=== PATIENT | female | born 1955 | race Caucasian/White ===

== ENCOUNTER 2018-06-18 13:32 | Observation (INO) ==
[2018-06-18] MEDS ORDERED: 0.9 % Sodium Chloride 1,000 ML IVC ONE (13:39)
--- NOTE | 2018-06-18 13:39 | Emergency Department Note ---
Disposition Clinical Impression: Weakness Disposition: Admitted As Inpatient Condition: Fair Referrals: Galindo Saucedo, [employer] [Primary Care Provider] - Forms: ED Satisfaction Letter, Work/School Release Time of Disposition: 15:50 (Dr Graff) Altered Mental Status HPI - General Chief Complaint: ED General Medical Stated Complaint: LOW BP/DEHYDRATION Time Seen by Provider: 06/18/18 13:50 Source: patient, EMS Mode of arrival: EMS Limitations: no limitations Nursing Notes Reviewed: Yes Vital Signs Reviewed: Yes - History of Present Illness HPI Narrative: For over one week the patient has had decreased by mouth intake secondary to decreased appetite and has been increasingly weak and tired. He has a history of glioblastoma and underwent recent brain surgery. She had chemotherapy approximately one month ago. MD complaint: weakness Timing confirmed by: family member Pain Severity: none Consistency of Symptoms: getting worse Associated symptoms: Reports: headaches, loss of appetite, weakness, difficulty walking. Denies: chest pain, cough, diaphoresis, fever, chills, malaise, nausea /vomiting, rash, seizure, shortness of breath, syncope, diarrhea, incontinence - Related Data Home Medications Medication Instructions Recorded Confirmed Omeprazole 40 mg PO DAILY 09/17/16 04/04/18 Simvastatin [Zocor] 40 mg PO HS 09/17/16 04/04/18 Acetaminophen [Tylenol] 650 mg PO Q4HR PRN 03/18/18 04/04/18 Docusate [Colace] 100 mg PO BID 03/18/18 04/04/18 Metoprolol [Lopressor] 12.5 mg PO BID 03/18/18 04/04/18 Ondansetron ODT [Zofran ODT] 8 mg PO BID 03/18/18 04/04/18 Bumetanide 0.5 mg PO QAM 04/04/18 04/04/18 FLUoxetine HCl [PROzac] 20 mg PO DAILY 04/04/18 04/04/18 Lisinopril [Zestril] 40 mg PO DAILY 04/04/18 04/04/18 OxyCODONE/APAP 5/325 [Percocet 1 - 2 each PO Q4HR 04/04/18 04/04/18 5/325 MG] Previous Rx's Medication Instructions Recorded ALPRAZolam [Xanax 0.5 MG Tablet] 0.5 mg PO Q6H PRN 5 Days #20 tablet 04/01/18 Bumetanide 0.5 mg PO DAILY #30 tablet 04/01/18 Cyanocobalamin (B-12) [Vitamin B12] 1,000 mcg PO DAILY #30 tablet 04/01/18 Dexamethasone [Decadron] 4 mg PO Q12HR #60 tablet 04/01/18 LevETIRAcetam [Keppra] 500 mg PO Q12HR #60 tablet 04/01/18 amLODIPine [Norvasc] 5 mg PO DAILY #30 tablet 04/01/18 Nitrofurantoin Monohyd/M-Cryst 100 mg PO DAILY #10 capsule 04/04/18 [Macrobid 100 mg Capsule] Allergies Allergy/AdvReac Type Severity Reaction Status Date / Time Amoxicillin AdvReac Itching Verified 05/27/18 10:48 All systems ED: reviewed and negative except as stated. 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 Absent: scleral icterus, conjunctival injection - ENT ENT exam: normal exam, normal oropharynx, mucous membranes moist - Neck Neck exam: Present: normal inspection, full ROM, trachea midline - Chest Chest inspection: Present: normal inspection, symmetric chest wall rise - Respiratory Respiratory exam: Present: normal lung sounds bilaterally - Cardiovascular Cardiovascular exam: Present: regular rate, normal rhythm, normal heart sounds - Abdominal Exam Abdominal exam: Present: soft, Non-Tender. Absent: tenderness, distention, guarding, rebound, rigidity - Extremities Exam Extremities exam: Present: normal inspection. Absent: tenderness, pedal edema - Psychiatric Psychiatric exam: Present: normal affect, normal mood - Skin Skin exam: Present: warm, dry, intact, normal color Course Vital Signs Temperature 98.8 F 07/21/18 13:33 Pulse Rate 91 06/18/18 13:33 Respiratory Rate 18 06/18/18 13:33 Blood Pressure 90/54 06/18/18 13:33 O2 Sat by Pulse Oximetry 95 06/18/18 13:33 Temperature 98.8 F 06/18/18 13:33 Pulse Rate 91 06/18/18 13:33 Respiratory Rate 18 06/18/18 13:33 Blood Pressure 90/54 06/18/18 13:33 O2 Sat by Pulse Oximetry 95 06/18/18 13:33 Oxygen Delivery Oxygen Delivery Room Air Altered Mental Status - Differential Diagnosis Likely: altered mental status, delirium, dementia, hypoglycemia, hyponatremia - Medical Records Medical records reviewed: Yes I reviewed the patient's medical records. - Lab Data Lab results reviewed: Yes I reviewed the patient's lab results. Result diagrams: 06/18/18 14:06 06/18/18 14:06 Lab Results 06/18/18 06/18/18 06/18/18 Range/Units 14:06 14:06 14:06 WBC 4.9 (4.3-11.1) K/mcL RBC 4.29 (3.82-4.97) M/mcL Hgb 12.7 (11.5-15.4) g/dL Hct 38.8 (35.3-44.9) % MCV 90.4 (83.0-100.0) fL MCH 29.6 (28.0-33.3) pg MCHC 32.7 (31.6-35.5) g/dL RDW 15.5 H (11.5-14.5) % Plt Count 229 (140-400) K/mcL MPV 9.1 L (9.4-12.4) fL Immature Gran % 1.0 (0-4) % Seg Neutrophils % 63.9 % Lymphocytes % 18.3 % Monocytes % 14.0 % Eosinophils % 2.2 % Basophils % 0.6 % Neutrophils # 3.1 (1.6-8.9) K/mcL Lymphocytes # 0.9 (0.6-4.6) K/mcL Monocytes # 0.7 (0.0-1.3) K/mcL Eosinophils # 0.1 (0.0-0.6) K/mcL Basophils # 0.0 (0.0-0.2) K/mcL Sodium 140 (136-145) mEq/L Potassium 4.4 (3.5-5.1) mEq/L Chloride 105 (98-107) mEq/L Carbon Dioxide 25 (23-29) mEq/L BUN 28 H (8-23) mg/dL Creatinine 1.93 H (0.60-1.20) mg/dL Est GFR ( Amer) 32 L (> 60) Est GFR (Non-Af Amer) 26 L (> 60) BUN/Creatinine Ratio 15 (6-26) Glucose 114 H (70-105) mg/dL Calculated Osmolality 296 (280-300) Lactic Acid 0.9 (0.5-2.2) mmol/L Calcium 9.9 (8.6-10.3) mg/dL Magnesium 1.7 (1.6-2.6) mg/dL Total Bilirubin 0.6 (0.3-1.0) mg/dL AST 10 L (13-39) Units/L ALT 5 L (7-52) Units/L Alkaline Phosphatase 47 (34-104) Units/L Troponin I < 0.03 (< 0.04) ng/mL Serum Total Protein 6.4 (6.4-8.9) g/dL Albumin 3.9 (3.5-5.7) g/dL Globulin 2.5 (2.4-3.5) g/dL Albumin/Globulin Ratio 1.6 (1.1-2.2) TSH 0.504 (0.340-5.600) mcIU/mL - Radiology Data Chest X-Ray 06/18/18 13:39 IMPRESSION: No acute process. D/ / Germain Bowman MD / Germain Bowman MD Interpreting Provider: Germain Bowman MD - EKG Data EKG attestation: Yes I reviewed and interpreted this EKG. Rate: normal Rhythm: NSR [place]/QRS: normal Interpretation: unchanged when compared to prior tracing (date), nonspecific ST- T wave changes TPA Checklist - LKW: 3-4.5 hrs Add. Warnings/Precautions Patient/family understanding: The patient/family members have been counseled and understood the risk, benefit , and alternatives of treatment.
[2018-06-18 14:13] LABS: Basophils % 0.6 %; Eosinophils # 0.1 K/mcL (0.0-0.6); Eosinophils % 2.2 %; Hematocrit 38.8 % (35.3-44.9); Hemoglobin 12.7 g/dL (11.5-15.4); Lymphocytes # 0.9 K/mcL (0.6-4.6); Lymphocytes % 18.3 %; Mean Corpuscular HGB Conc 32.7 g/dL (31.6-35.5); Mean Corpuscular Hemoglobin 29.6 pg (28.0-33.3); Mean Corpuscular Volume 90.4 fL (83.0-100.0); Mean Platelet Volume 9.1 fL (9.4-12.4); Monocytes # 0.7 K/mcL (0.0-1.3); Neutrophils # 3.1 K/mcL (1.6-8.9); Platelet Count 229 K/mcL (140-400); Red Blood Count 4.29 M/mcL (3.82-4.97); Red Cell Distribution Width 15.5 % (11.5-14.5); Segmented Neutrophils % 63.9 %
[2018-06-18 14:31] LABS: Alanine Aminotransferase 5 Units/L (7-52); Albumin 3.9 g/dL (3.5-5.7); Albumin/Globulin Ratio 1.6 (1.1-2.2); Alkaline Phosphatase 47 Units/L (34-104); Aspartate Amino Transferase 10 Units/L (13-39); BUN/Creatinine Ratio 15 (6-26); Bilirubin,Total 0.6 mg/dL (0.3-1.0); Blood Urea Nitrogen 28 mg/dL (8-23); Calcium 9.9 mg/dL (8.6-10.3); Carbon Dioxide 25 mEq/L (23-29); Chloride 105 mEq/L (98-107); Globulin 2.5 g/dL (2.4-3.5); Glucose 114 mg/dL (70-105); Magnesium 1.7 mg/dL (1.6-2.6); Osmolality,Calculated 296 (280-300); Potassium 4.4 mEq/L (3.5-5.1); Sodium 140 mEq/L (136-145); Total Protein 6.4 g/dL (6.4-8.9); eGFR For African Americans 32 (> 60); eGFR For Non-African Americans 26 (> 60)
[2018-06-18 14:40] LABS: Troponin I < 0.03 ng/mL (< 0.04)
[2018-06-18 14:54] LABS: Thyroid Stimulating Hormone 0.504 mcIU/mL (0.340-5.600)
[2018-06-18] MEDS ORDERED: Naloxone 0.4 MG/ML INJ IVP PRN (17:35)
[2018-06-18] MEDS ORDERED: Acetaminophen 325 MG TABLET PO PRN (17:35)
[2018-06-18] MEDS ORDERED: 0.9 % Sodium Chloride 1,000 ML IVC SCH (17:35)
[2018-06-18] MEDS: levETIRAcetam 250 MG TABLET PO SCH (18:51)
[2018-06-18] MEDS: *HR* OxyCODONE/APAP 5/325 TABLET PO SCH (18:52)
[2018-06-18] MEDS: Ondansetron ODT 4 MG TAB.RAPDIS PO SCH (20:13)
[2018-06-19] MEDS: *HR* OxyCODONE/APAP 5/325 TABLET PO SCH ×8 (04:07→20:49)
[2018-06-19 06:09] LABS: Basophils % 0.8 %; Eosinophils % 0.6 %; Hematocrit 33.2 % (35.3-44.9); Hemoglobin 10.8 g/dL (11.5-15.4); Immature Granulocytes % 0.6 % (0-4); Lymphocytes # 0.8 K/mcL (0.6-4.6); Lymphocytes % 23.8 %; Mean Corpuscular HGB Conc 32.5 g/dL (31.6-35.5); Mean Corpuscular Hemoglobin 29.6 pg (28.0-33.3); Mean Platelet Volume 9.7 fL (9.4-12.4); Monocytes # 0.4 K/mcL (0.0-1.3); Monocytes % 11.9 %; Neutrophils # 2.2 K/mcL (1.6-8.9); Platelet Count 197 K/mcL (140-400); Red Blood Count 3.65 M/mcL (3.82-4.97); Red Cell Distribution Width 15.3 % (11.5-14.5); Segmented Neutrophils % 62.3 %
[2018-06-19] MEDS: levETIRAcetam 250 MG TABLET PO SCH ×2 (06:36→17:33)
[2018-06-19 07:06] LABS: Calcium 8.9 mg/dL (8.6-10.3); Potassium 4.5 mEq/L (3.5-5.1)
[2018-06-19] MEDS ORDERED: BUMETANIDE 0.5 MG PO SCH (09:00)
[2018-06-19] MEDS: Cyanocobalamin (B-12) 1,000 MCG TABLET PO SCH (10:34)
[2018-06-19] MEDS: ALPRAZolam 0.5 MG TABLET PO PRN ×2 (10:34→20:49)
[2018-06-19] MEDS: amLODIPine 5 MG TABLET PO SCH (10:34)
[2018-06-19] MEDS: FLUoxetine 20 MG CAPSULE PO SCH (10:34)
[2018-06-19] MEDS: Ondansetron ODT 4 MG TAB.RAPDIS PO SCH ×2 (10:34→20:49)
[2018-06-19] MEDS: Nitrofurantoin (BID) 100 MG CAPSULE PO SCH (10:38)
--- NOTE | 2018-06-19 11:30 | Internal Med History&Physical ---
Date of Encounter: 06/19/18 Time of Encounter: 11:00 Assessment and Plan (1) Azotemia Current visit: No Status: Acute Likely acute renal insufficiency from dehydration. Bumex has been discontinued and IV fluids have been started. Labs will be monitored. (2) Hypertension Current visit: No Status: Chronic Discontinue lisinopril. Continue metoprolol and amlodipine at present time. Qualifiers: Hypertension type: essential hypertension Qualified Code(s): I10 - Essential (primary) hypertension (3) Depression with anxiety Current visit: No Status: Chronic Continue Prozac (4) B12 deficiency Current visit: No Status: Chronic Check B12 level and a.m. (5) Weakness Current visit: Yes Status: Acute Family states her insurance therapy benefit has been exhausted (6) Anemia Current visit: Yes Status: Acute Order anemia testing in a.m. Qualifiers: Anemia type: unspecified type Qualified Code(s): D64.9 - Anemia, unspecified (7) Glioblastoma multiforme Current visit: Yes Status: Acute As per oncologist. Continue Decadron Internal Medicine - H&P: HPI Chief complaint: Lethargy, dehydration, poor oral intake. Admitted From: Emergency Dept Plans for Post Hospital Care: Home History of present illness: Ms. Piña is a 62 year old female who came to emergency room after family reported decreased oral intake with increased lethargy and hypotension for approximately 1 week. She was evaluated in emergency room and found to have acute renal insufficiency probably secondary to dehydration. She was admitted to [facility] floor for ongoing care needs. She was diagnosed with high-grade glioblastoma at [facility] February 2018 and has undergone chemotherapy and XRT. She was at [facility] swing bed February 2018. She has been hospitalized on 2 occasions at [facility] for dehydration since [facility] swing bed stay. She was in a SNF in [facility] for approximately 3 weeks. She has been nonambulatory for several weeks because of left hemiplegia from glioblastoma affect. She has had multiple DVTs and PE documented since her [facility] swing bed discharge and is now on Xarelto. She is scheduled for brain MRI 06/23/2018 at [facility] for follow-up. She denies previous malignancies. She does have anemia. Past Med Surg Social Fam HX - Past Medical History Medical history: cancer, DVT, GERD, hyperlipidemia, hypertension, migraine, seizures, valvular heart disease, other Additional medical history: PE Psychiatric history: anxiety - Past Surgical History Surgical History: hysterectomy, other Additional surgical history: Brain byopsy - Social History Smoking Status: Former smoker Smokeless Tobacco Status: No Alcohol use: rarely Drug use: marijuana Internal Medicine - H&P: Meds Omeprazole 40 mg PO DAILY 09/17/16 [History] Simvastatin [Zocor] 40 mg PO HS 09/17/16 [History] Acetaminophen [Tylenol] 650 mg PO Q4HR PRN 03/18/18 [History] Docusate [Colace] 100 mg PO BID 03/18/18 [History] Metoprolol [Lopressor] 12.5 mg PO BID 03/18/18 [History] Ondansetron ODT [Zofran ODT] 8 mg PO BID 03/18/18 [History] ALPRAZolam [Xanax 0.5 MG Tablet] 0.5 mg PO Q6H PRN 5 Days #20 tablet 04/01/18 [ Rx] Bumetanide 0.5 mg PO DAILY #30 tablet 04/01/18 [Rx] Cyanocobalamin (B-12) [Vitamin B12] 1,000 mcg PO DAILY #30 tablet 04/01/18 [Rx] Dexamethasone [Decadron] 4 mg PO Q12HR #60 tablet 04/01/18 [Rx] LevETIRAcetam [Keppra] 500 mg PO Q12HR #60 tablet 04/01/18 [Rx] amLODIPine [Norvasc] 5 mg PO DAILY #30 tablet 04/01/18 [Rx] Bumetanide 0.5 mg PO QAM 04/04/18 [History] FLUoxetine HCl [PROzac] 20 mg PO DAILY 04/04/18 [History] Lisinopril [Zestril] 40 mg PO DAILY 04/04/18 [History] Nitrofurantoin Monohyd/M-Cryst [Macrobid 100 mg Capsule] 100 mg PO DAILY #10 capsule 04/04/18 [Rx] OxyCODONE/APAP 5/325 [Percocet 5/325 MG] 1 - 2 each PO Q4HR 04/04/18 [History] 3 Allergy/AdvReac Type Severity Reaction Status Date / Time Amoxicillin AdvReac Itching Verified 05/27/18 10:48 All Systems PM: A 10-system review of systems was performed and is negative for pertinent findings except as documented above in the HPI. Review of systems: Gen.: Her weight has been stable at approximately 89.5 kg since February 2018 hospitalization. Cardiovascular: She has history of hypertension. She denies NC or heart failure. She reports a DVT 2008 following initiation of estrogen replacement hormone. She has had recent multiple DVTs with PE as per history of present illness. Respiratory: She smoked from age [age] never up to one pack per week. She denies chronic lung disease GI: She denies disorders of her liver gallbladder or exocrine pancreas : She denies hematuria dysuria kidney stones or chronic kidney disease. She had acute renal failure during her swing bed stay which improved after chlorthalidone and lisinopril were discontinued. Lisinopril has been restarted since swing bed discharge. Review of archived labs show significant fluctuation in creatinine the past 2 years Neurologic: She has had seizures in the past. She was diagnosed with glioblastoma February 2018 as per history of present illness. She has left hemiplegia from glioblastoma effect. She denies large distribution strokes otherwise. Endocrine: She denies diabetes or thyroid disease but does have hyperlipidemia Hematology/oncology: As per history of present illness Psychiatric: She has anxiety and depression but denies other mental health issues Muscle skeletal: She has DJD. She had left arm fracture 2013. She denies gout or other bone joint or muscle disorders. - Constitutional Vitals: Temp Pulse Resp BP Pulse Ox 97.9 F 68 16 112/70 97 06/19/18 06:31 06/19/18 06:31 06/19/18 06:33 06/19/18 06:31 06/19/18 06:38 Exam: Gen.: She is a well-developed well-nourished female resting comfortably in bed who appears in no acute distress HEENT: Head shows a healing incision in the right parietal area from February 2018 brain biopsy surgery. She has significant alopecia. Eyes: EOMI. There is no scleral icterus. Mouth: Mucosa is dry. Neck: There is no thyromegaly or adenopathy noted. Heart: Regular without murmurs gallops or ectopics Lungs: No wheezes or crackles are heard. Abdomen: Soft and nontender. No masses or guarding are noted. Extremities: There is no cyanosis edema or clubbing noted. Dorsalis pedis and posterior tibial pulses are trace palpable bilaterally. Neurologic: Mental status: She is able to answer some questions. She is a fair historian but does not remember some details of her past history. Cranial nerves: Smile is symmetric. Forehead wrinkles bilaterally. Tongue protrudes midline. EOMI. Motor: She is able lift the left arm off the bed but does not move it well. The right arm moves normally. She does not have any significant movement of her left leg. The right leg moves normally. No further neurologic testing is attempted. Skin: Warm and dry Internal Med - H&P Results - Labs CBC & Chem 7: 06/19/18 05:13 06/19/18 05:13 Labs: Short CBC 06/19/18 Range/Units 05:13 WBC 3.5 L (4.3-11.1) K/mcL Hgb 10.8 L D (11.5-15.4) g/dL Hct 33.2 L (35.3-44.9) % Plt Count 197 (140-400) K/mcL Neutrophils # 2.2 (1.6-8.9) K/mcL BMP 06/19/18 05:13 Sodium 138 Potassium 4.5 Chloride 107 Carbon Dioxide 21 L BUN 28 H Creatinine 1.53 H Glucose 99 Calcium 8.9
[2018-06-19] MEDS: *HR* OxyCODONE/APAP 5/325 TABLET PO PRN (20:49)
[2018-06-20] MEDS: *HR* OxyCODONE/APAP 5/325 TABLET PO SCH ×4 (03:50→12:48)
[2018-06-20] MEDS: levETIRAcetam 250 MG TABLET PO SCH (06:32)
[2018-06-20 07:52] LABS: Basophils % 0.7 %; Eosinophils % 0.7 %; Hematocrit 30.7 % (35.3-44.9); Lymphocytes # 0.8 K/mcL (0.6-4.6); Lymphocytes % 25.6 %; Mean Corpuscular HGB Conc 32.6 g/dL (31.6-35.5); Mean Corpuscular Hemoglobin 29.4 pg (28.0-33.3); Mean Corpuscular Volume 90.3 fL (83.0-100.0); Monocytes # 0.5 K/mcL (0.0-1.3); Monocytes % 16.8 %; Platelet Count 179 K/mcL (140-400); Red Cell Distribution Width 14.7 % (11.5-14.5); Segmented Neutrophils % 55.2 %
[2018-06-20 08:16] LABS: Neutrophils # 1.7 K/mcL (1.6-8.9)
[2018-06-20 08:20] LABS: Calcium 9.2 mg/dL (8.6-10.3); Potassium 4.1 mEq/L (3.5-5.1)
[2018-06-20] MEDS: amLODIPine 5 MG TABLET PO SCH (09:23)
[2018-06-20] MEDS: Ondansetron ODT 4 MG TAB.RAPDIS PO SCH (09:25)
[2018-06-20] MEDS: *HR* OxyCODONE/APAP 5/325 TABLET PO PRN (09:25)
[2018-06-20] MEDS: FLUoxetine 20 MG CAPSULE PO SCH (09:25)
[2018-06-20] MEDS: Cyanocobalamin (B-12) 1,000 MCG TABLET PO SCH (09:25)
[2018-06-20] MEDS: Nitrofurantoin (BID) 100 MG CAPSULE PO SCH (09:28)
[2018-06-20 14:42] VITALS: BP 125/81
--- NOTE | 2018-06-20 14:43 | Discharge Summary ---
Orders not resulted at time of discharge: Pending orders 06/20/18 07:06 Vitamin B12 AM 0400 Date of Encounter: 06/20/18 Time of Encounter: 14:30 - Discharge Diagnosis (1) Acute renal failure Priority: Primary Status: Resolved Qualifiers: Acute renal failure type: unspecified Qualified Code(s): N17.9 - Acute kidney failure, unspecified (2) Hypertension Priority: Secondary Status: Chronic Qualifiers: Hypertension type: essential hypertension Qualified Code(s): I10 - Essential (primary) hypertension (3) Depression with anxiety Priority: Secondary Status: Chronic (4) B12 deficiency Priority: Secondary Status: Chronic (5) Weakness Priority: Secondary Status: Chronic (6) Anemia Priority: Secondary Status: Acute Qualifiers: Anemia type: unspecified type Qualified Code(s): D64.9 - Anemia, unspecified (7) Glioblastoma multiforme Priority: Secondary Status: Chronic Hospital course: Ms. Piña is a 62 year old female who came to emergency room after family reported decreased oral intake with increased lethargy and hypotension for approximately 1 week. She was evaluated in emergency room and found to have acute renal insufficiency probably secondary to dehydration. She was admitted to [facility] floor for ongoing care needs. Initial orders were written by the emergency room physician. I saw her on June 19 and performed a history and physical. She was started on IV fluids. Bumex was discontinued. Follow-up labs on June 20 showed BUN and creatinine improved to 22 and 1.16 respectively with estimated GFR 47. She will remain off Bumex at discharge. Amlodipine and lisinopril were also discontinued because of hypotension. She will continue metoprolol at discharge. Her PCP can monitor blood pressure and adjust medications further as needed. Hemoglobin decreased to 10.0 with rehydration. Her PCP can monitor this. There were no new problems and on June 20 I felt she was stable for discharge home. She will follow with her PCP SOFYA Saucedo CNP within 1 week. - Time Spent with Patient Total time spent providing and/or coordinating discharge services: - Discharge Medications Home Medications: Omeprazole 40 mg PO DAILY 09/17/16 [History] Simvastatin [Zocor] 40 mg PO HS 09/17/16 [History] Acetaminophen [Tylenol] 650 mg PO Q4HR PRN 03/18/18 [History] Docusate [Colace] 100 mg PO BID 03/18/18 [History] Metoprolol [Lopressor] 12.5 mg PO BID 03/18/18 [History] Ondansetron ODT [Zofran ODT] 8 mg PO BID 03/18/18 [History] ALPRAZolam [Xanax 0.5 MG Tablet] 0.5 mg PO Q6H PRN 5 Days #20 tablet 04/01/18 [ Rx] Cyanocobalamin (B-12) [Vitamin B12] 1,000 mcg PO DAILY #30 tablet 04/01/18 [Rx] Dexamethasone [Decadron] 4 mg PO Q12HR #60 tablet 04/01/18 [Rx] LevETIRAcetam [Keppra] 500 mg PO Q12HR #60 tablet 04/01/18 [Rx] FLUoxetine HCl [Prozac] 20 mg PO DAILY 04/04/18 [History] Nitrofurantoin Monohyd/M-Cryst [Macrobid 100 mg Capsule] 100 mg PO DAILY #10 capsule 04/04/18 [Rx] OxyCODONE/APAP 5/325 [Percocet 5/325 MG] 1 - 2 each PO Q4HR 04/04/18 [History] Allergies/Adverse Reactions: 3 Allergy/AdvReac Type Severity Reaction Status Date / Time Amoxicillin AdvReac Itching Verified 05/27/18 10:48 Date of admission: 06/18/18 15:59 Primary care physician: Galindo Saucedo CNP - Constitutional Vitals: Temp Pulse Resp BP Pulse Ox 97.6 F 51 16 97/60 96 06/20/18 06:42 06/20/18 06:42 06/20/18 06:42 06/20/18 09:22 06/20/18 06:42 - Patient Status Disposition: Home Health Service Condition: Fair - Discharge Instructions Follow Up With: Galindo Saucedo CNP [Primary Care Provider] - 1 week - Diet and Activity Diet: advance to your usual diet
--- NOTE | 2018-06-20 15:02 | Physician Discharge Referral ---
Home Health/Hosp Referral Info Transfer to: Home Health Attending Provider: Dajuan Provider in Charge Post Discharge: PCP (SOFYA Saucedo CNP) - Diagnosis (1) Acute renal failure Priority: Primary Status: Resolved (2) Hypertension Priority: Secondary Status: Chronic (3) Depression with anxiety Priority: Secondary Status: Chronic (4) B12 deficiency Priority: Secondary Status: Chronic (5) Weakness Priority: Secondary Status: Chronic (6) Anemia Priority: Secondary Status: Acute (7) Glioblastoma multiforme Priority: Secondary Status: Chronic - Respiratory Orders Smoking Cessation: Smoking cessation has been advised. For more information, call the [place] Tobacco Quit Line at 9-884-LXQT-NOW. - Diet/Nutrition Diet/Nutrition Orders: Regular - Services Needed Following services are medically necessary services: Nursing, Home Health Aide, Physical Therapy, Occupational Therapy - Transfer Medications Home Medications: Omeprazole 40 mg PO DAILY 09/17/16 [History] Simvastatin [Zocor] 40 mg PO HS 09/17/16 [History] Acetaminophen [Tylenol] 650 mg PO Q4HR PRN 03/18/18 [History] Docusate [Colace] 100 mg PO BID 03/18/18 [History] Metoprolol [Lopressor] 12.5 mg PO BID 03/18/18 [History] Ondansetron ODT [Zofran ODT] 8 mg PO BID 03/18/18 [History] ALPRAZolam [Xanax 0.5 MG Tablet] 0.5 mg PO Q6H PRN 5 Days #20 tablet 04/01/18 [ Rx] Cyanocobalamin (B-12) [Vitamin B12] 1,000 mcg PO DAILY #30 tablet 04/01/18 [Rx] Dexamethasone [Decadron] 4 mg PO Q12HR #60 tablet 04/01/18 [Rx] LevETIRAcetam [Keppra] 500 mg PO Q12HR #60 tablet 04/01/18 [Rx] FLUoxetine HCl [Prozac] 20 mg PO DAILY 04/04/18 [History] Nitrofurantoin Monohyd/M-Cryst [Macrobid 100 mg Capsule] 100 mg PO DAILY #10 capsule 04/04/18 [Rx] OxyCODONE/APAP 5/325 [Percocet 5/325 MG] 1 - 2 each PO Q4HR 04/04/18 [History] Allergies/Adverse Reactions: 3 Allergy/AdvReac Type Severity Reaction Status Date / Time Amoxicillin AdvReac Itching Verified 05/27/18 10:48 Certification: Further, I certify that my clinical findings support that this patient is homebound (i.e. absences from home require considerable and taxing effort and are for medical reasons or anglican services or infrequently or short duration when for other reasons) because: Homebound Reason: Leaving home requires considerable and taxing effort due to condition (Left hemiparesis ) Attestation: My signature below is to certify that this patient is under my care and that I, or nurse practitioner, or a physician's medication assistant working with me, has a face-to -face encounter with this patient.
--- NOTE | 2018-06-20 19:32 | Electrocardiograph Report ---
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
== END 2018-06-20 16:15 | disposition home health service (06) ==
LOC: EMEROOPIK 13:32 → INPPIK 13:32
PROVIDERS: ADMIT Internal Medicine; ATTEND Internal Medicine

== ENCOUNTER 2018-07-07 13:14 | Inpatient (IN) ==
[2018-07-07] MEDS ORDERED: Acetaminophen 325 MG TABLET PO PRN (15:57)
[2018-07-07] MEDS ORDERED: Ondansetron ODT 4 MG TAB.RAPDIS SL PRN (15:57)
[2018-07-07] MEDS: levETIRAcetam 250 MG TABLET PO SCH (17:49)
[2018-07-07] MEDS: *HR* OxyCODONE Immed Rel 5 MG TABLET PO SCH (21:34)
[2018-07-08] MEDS: levETIRAcetam 250 MG TABLET PO SCH ×2 (06:57→17:26)
[2018-07-08] MEDS: *HR* OxyCODONE Immed Rel 5 MG TABLET PO SCH (08:58)
[2018-07-08] MEDS: Cyanocobalamin (B-12) 1,000 MCG TABLET PO SCH (08:59)
[2018-07-08] MEDS: FLUoxetine 20 MG CAPSULE PO SCH (08:59)
--- NOTE | 2018-07-08 13:59 | Internal Med History&Physical ---
Date of Encounter: 07/08/18 Time of Encounter: 13:30 Assessment and Plan (1) Failure to thrive in adult Current visit: No Status: Acute She will have physical therapy and occupational therapy evaluations with ongoing intervention. (2) Glioblastoma multiforme Current visit: No Status: Chronic As per oncologist (3) Anemia Current visit: No Status: Acute Order anemia testing in a.m. Qualifiers: Anemia type: B12 deficiency Vitamin B12 deficiency anemia type: unspecified B12 deficiency Qualified Code(s): D51.9 - Vitamin B12 deficiency anemia, unspecified (4) Pulmonary embolus Current visit: Yes Status: Acute Xarelto not listed on home medicine list. Will restart since she has had DVT/ PE recently. Qualifiers: Pulmonary embolism type: other Chronicity: unspecified Acute cor pulmonale presence: without acute cor pulmonale Qualified Code(s): I26.99 - Other pulmonary embolism without acute cor pulmonale Internal Medicine - H&P: HPI Chief complaint: Dehydration Admitted From: Hospital to Hospital Transfer Plans for Post Hospital Care: Home History of present illness: Ms. Piña is a 62 year old female who was hospitalized at [facility] July 04 after presenting with dehydration. She was given IV fluids and had improvement. It was felt she would benefit from ongoing therapy so she was discharged to [facility] swing bed. She was hospitalized June 19 at [facility] with acute renal failure and dehydration. She also had an acute renal failure episode prior to that. Chlorthalidone and lisinopril were discontinued during a previous hospitalization at [facility].. She denies other disorders of kidney or bladder. Past Med Surg Social Fam HX - Past Medical History Medical history: cancer, DVT, GERD, hyperlipidemia, hypertension, migraine, seizures, valvular heart disease, other Additional medical history: PE,neoblastoma Psychiatric history: anxiety - Past Surgical History Surgical History: hysterectomy, other Additional surgical history: Brain byopsy - Social History Smoking Status: Former smoker Smokeless Tobacco Status: No Alcohol use: rarely Drug use: marijuana - Family History Mother Hx Family Cancer: Yes (pancreatic) Father Hx Family Cancer: Yes (skin) Internal Medicine - H&P: Meds Omeprazole 40 mg PO DAILY 09/17/16 [History] Simvastatin [Zocor] 40 mg PO HS 09/17/16 [History] Acetaminophen [Tylenol] 650 mg PO Q4HR PRN 03/18/18 [History] Docusate [Colace] 100 mg PO BID 03/18/18 [History] Metoprolol [Lopressor] 12.5 mg PO BID 03/18/18 [History] Cyanocobalamin (B-12) [Vitamin B12] 1,000 mcg PO DAILY #30 tablet 04/01/18 [Rx] Dexamethasone [Decadron] 4 mg PO Q12HR #60 tablet 04/01/18 [Rx] LevETIRAcetam [Keppra] 500 mg PO Q12HR #60 tablet 04/01/18 [Rx] FLUoxetine HCl [Prozac] 20 mg PO DAILY 04/04/18 [History] OxyCODONE Immed Rel [Roxicodone 10 MG] 10 mg PO BID 07/04/18 [History] diazePAM [Valium] 5 mg PO BID PRN 07/04/18 [History] Dronabinol [Marinol] 2.5 mg PO BIDLS 15 Days #30 capsule 07/07/18 [Rx] Ondansetron ODT [Zofran ODT] 4 mg SL Q4HR PRN #30 tab.rapdis 07/07/18 [Rx] 3 Allergy/AdvReac Type Severity Reaction Status Date / Time Amoxicillin AdvReac Itching Verified 07/04/18 15:10 All Systems PM: A 10-system review of systems was performed and is negative for pertinent findings except as documented above in the HPI. Review of systems: Review of systems from her May 2018 [facility] hospitalization were reviewed and revised as below. Gen.: Her weight has been stable at approximately 89.5 kg since February 2018 hospitalization. Cardiovascular: She has history of hypertension. She denies LA or heart failure. She reports a DVT 2008 following initiation of estrogen replacement hormone. She has had recent multiple DVTs with PE. Respiratory: She smoked from age [age] never up to one pack per week. She denies chronic lung disease GI: She denies disorders of her liver gallbladder or exocrine pancreas : She denies hematuria dysuria kidney stones or chronic kidney disease. She had acute renal failure during an earlier swing bed stay which improved after chlorthalidone and lisinopril were discontinued. Review of archived labs show significant fluctuation in creatinine the past 2 years Neurologic: She has had seizures in the past. She was diagnosed with glioblastoma February 2018. She has left hemiplegia from glioblastoma effect. She denies large distribution strokes otherwise. Endocrine: She denies diabetes or thyroid disease but does have hyperlipidemia Hematology/oncology: She was diagnosed with high-grade glioblastoma at [facility] February 2018 and has undergone chemotherapy and XRT. There is no history of previous malignancies. She has anemia. Psychiatric: She has anxiety and depression but denies other mental health issues Muscle skeletal: She has DJD. She had left arm fracture 2013. She denies gout or other bone joint or muscle disorders. - Constitutional Vitals: Temp Pulse Resp BP Pulse Ox 97.3 F L 52 18 110/63 99 07/08/18 07:11 07/08/18 07:11 07/08/18 07:11 07/08/18 07:11 07/08/18 07:11 Exam: Gen.: She is a well-developed well-nourished female resting comfortably in bed who appears in no acute distress HEENT: Her head shows healing surgical incision in the right parietal area with an eschar approximately 4-5 cm length in the surgical incision area. Eyes: EOMI. There is no scleral icterus. Mouth: Mucosa is moist. Neck: Supple and nontender. There is no thyromegaly or adenopathy noted. Heart: Regular without murmurs gallops or ectopics Lungs: No wheezes or crackles are heard. Abdomen: Soft and nontender. No masses or guarding are noted. Extremities: There is no cyanosis edema or clubbing noted. Dorsalis pedis and posterior tibial pulses are trace palpable bilaterally. Neurologic: Mental status: She is able to answer questions and is a fair historian. She seems to forget several details of her history and occasionally repeats questions. Cranial nerves: Smile is symmetric. Forehead wrinkles bilaterally. Tongue protrudes midline. EOMI. Motor: She has difficulty raising the left arm off the bed. Left foot ankle and extension strength against resistance is decreased compared to the right which is normal. She has pronator drift of the left arm. Cerebellar: Finger to nose is intact with the right hand but impaired with the left hand. Skin: Warm and dry
[2018-07-08] MEDS: *HR* OxyCODONE Immed Rel 5 MG TABLET PO PRN (15:12)
[2018-07-08] MEDS: *HR* OxyCODONE ER (12 HR) 10 MG TABLET PO SCH (17:26)
[2018-07-08] MEDS: *HR* Rivaroxaban 10 MG TABLET PO SCH (17:26)
[2018-07-09 05:22] LABS: Eosinophils % 0.2 %; Hematocrit 31.9 % (35.3-44.9); Hemoglobin 10.4 g/dL (11.5-15.4); Immature Granulocytes % 1.1 % (0-4); Lymphocytes # 0.7 K/mcL (0.6-4.6); Lymphocytes % 10.7 %; Mean Corpuscular HGB Conc 32.6 g/dL (31.6-35.5); Mean Corpuscular Hemoglobin 29.3 pg (28.0-33.3); Mean Corpuscular Volume 89.9 fL (83.0-100.0); Mean Platelet Volume 10.5 fL (9.4-12.4); Monocytes # 0.5 K/mcL (0.0-1.3); Monocytes % 7.1 %; Neutrophils # 5.1 K/mcL (1.6-8.9); Platelet Count 159 K/mcL (140-400); Red Blood Count 3.55 M/mcL (3.82-4.97); Red Cell Distribution Width 14.9 % (11.5-14.5); Segmented Neutrophils % 80.9 %
[2018-07-09 05:45] LABS: BUN/Creatinine Ratio 23 (6-26); Blood Urea Nitrogen 18 mg/dL (8-23); Carbon Dioxide 25 mEq/L (23-29); Chloride 106 mEq/L (98-107); Glucose 104 mg/dL (70-105); Osmolality,Calculated 288 (280-300); Potassium 4.3 mEq/L (3.5-5.1); Sodium 138 mEq/L (136-145); eGFR For Non-African Americans > 60 (> 60)
[2018-07-09] MEDS: *HR* OxyCODONE ER (12 HR) 10 MG TABLET PO SCH ×2 (06:31→17:19)
[2018-07-09] MEDS: levETIRAcetam 250 MG TABLET PO SCH ×2 (06:32→17:20)
[2018-07-09] MEDS: Cyanocobalamin (B-12) 1,000 MCG TABLET PO SCH (08:57)
[2018-07-09] MEDS: FLUoxetine 20 MG CAPSULE PO SCH (08:57)
[2018-07-09 09:27] LABS: % Iron Saturation 22 % (15-50); Iron 62 mcg/dL (50-170); Transferrin 199 mg/dL (203-362)
[2018-07-09 09:46] LABS: Ferritin 56 ng/mL (10-120)
[2018-07-09 09:50] LABS: Folate 9.3 ng/mL (3.0-16.0)
[2018-07-09] MEDS: *HR* OxyCODONE Immed Rel 5 MG TABLET PO PRN (11:45)
[2018-07-09] MEDS: *HR* Rivaroxaban 10 MG TABLET PO SCH (17:20)
[2018-07-10] MEDS: levETIRAcetam 250 MG TABLET PO SCH ×2 (06:28→18:30)
[2018-07-10] MEDS: *HR* OxyCODONE ER (12 HR) 10 MG TABLET PO SCH ×2 (06:28→18:30)
[2018-07-10] MEDS: FLUoxetine 20 MG CAPSULE PO SCH (08:20)
[2018-07-10] MEDS: Cyanocobalamin (B-12) 1,000 MCG TABLET PO SCH (08:20)
[2018-07-10] MEDS: *HR* OxyCODONE Immed Rel 5 MG TABLET PO PRN ×2 (08:23→15:53)
--- NOTE | 2018-07-10 12:29 | Internal Med Progress Note ---
Date of Encounter: 07/10/18 Time of Encounter: 12:20 - Assessment and plan (1) Failure to thrive in adult Current Visit: No Status: Acute Assessment and plan: July 10. Continue PT and OT intervention. (2) Glioblastoma multiforme Current Visit: No Status: Chronic Assessment and plan: July 10. As per oncologist (3) Anemia Current Visit: No Status: Acute Assessment and plan: July 10. Anemia testing showed iron 62, transferrin saturation 22%, transferrin 199, ferritin 56, B12 1067, and folate 9.3. Continue to monitor. Qualifiers: Anemia type: B12 deficiency Vitamin B12 deficiency anemia type: unspecified B12 deficiency Qualified Code(s): D51.9 - Vitamin B12 deficiency anemia, unspecified (4) Pulmonary embolus Current Visit: Yes Status: Acute Assessment and plan: July 10. Continue Xarelto Qualifiers: Pulmonary embolism type: other Chronicity: unspecified Acute cor pulmonale presence: without acute cor pulmonale Qualified Code(s): I26.99 - Other pulmonary embolism without acute cor pulmonale - Subjective Interval history: July 10. She has no new complaints. - Constitutional Vitals: Temp Pulse Resp BP Pulse Ox 97.7 F 72 16 173/71 96 07/10/18 06:44 07/10/18 06:44 07/10/18 06:44 07/10/18 06:44 07/10/18 06:44 Exam: She is resting comfortably in bed and appears in no acute distress. She is generally appropriate in conversation and seems to be forgetful. I reviewed her medications and lab results. Internal Medicine: Result - Labs CBC & Chem 7: 07/09/18 04:43 07/09/18 04:43 Consult Discharge Plan - Plan Referrals: Galindo Saucedo, ADJUNCT PHLEBOTOMY INSTRUCTOR [Primary Care Provider] - 1 week
[2018-07-10] MEDS: *HR* Rivaroxaban 10 MG TABLET PO SCH (15:55)
[2018-07-10] MEDS: diazePAM 5 MG TABLET PO PRN (18:33)
[2018-07-11] MEDS: levETIRAcetam 250 MG TABLET PO SCH ×2 (06:29→17:07)
[2018-07-11] MEDS: *HR* OxyCODONE ER (12 HR) 10 MG TABLET PO SCH ×2 (06:29→17:07)
[2018-07-11] MEDS: Cyanocobalamin (B-12) 1,000 MCG TABLET PO SCH (08:35)
[2018-07-11] MEDS: FLUoxetine 20 MG CAPSULE PO SCH (08:35)
[2018-07-11] MEDS: *HR* OxyCODONE Immed Rel 5 MG TABLET PO PRN ×2 (08:38→21:59)
[2018-07-11] MEDS: diazePAM 5 MG TABLET PO PRN (15:09)
[2018-07-11] MEDS: *HR* Rivaroxaban 10 MG TABLET PO SCH (17:07)
[2018-07-12] MEDS: *HR* OxyCODONE ER (12 HR) 10 MG TABLET PO SCH ×2 (06:03→17:46)
[2018-07-12] MEDS: levETIRAcetam 250 MG TABLET PO SCH ×2 (06:04→17:46)
[2018-07-12] MEDS: FLUoxetine 20 MG CAPSULE PO SCH (09:22)
[2018-07-12] MEDS: Cyanocobalamin (B-12) 1,000 MCG TABLET PO SCH (09:23)
[2018-07-12] MEDS: *HR* OxyCODONE Immed Rel 5 MG TABLET PO PRN (09:28)
--- NOTE | 2018-07-12 12:24 | Internal Med Progress Note ---
Date of Encounter: 07/12/18 Time of Encounter: 12:15 - Assessment and plan (1) Failure to thrive in adult Current Visit: No Status: Acute Assessment and plan: July 10. Continue PT and OT intervention. July 12. Continue therapy. Anticipate discharge home July 15. (2) Glioblastoma multiforme Current Visit: No Status: Chronic Assessment and plan: July 10. As per oncologist (3) Anemia Current Visit: No Status: Acute Assessment and plan: July 10. Anemia testing showed iron 62, transferrin saturation 22%, transferrin 199, ferritin 56, B12 1067, and folate 9.3. Continue to monitor. Qualifiers: Anemia type: B12 deficiency Vitamin B12 deficiency anemia type: unspecified B12 deficiency Qualified Code(s): D51.9 - Vitamin B12 deficiency anemia, unspecified (4) Pulmonary embolus Current Visit: Yes Status: Acute Assessment and plan: July 10. Continue Xarelto Qualifiers: Pulmonary embolism type: other Chronicity: unspecified Acute cor pulmonale presence: without acute cor pulmonale Qualified Code(s): I26.99 - Other pulmonary embolism without acute cor pulmonale - Subjective Interval history: July 10. She has no new complaints. July 12. She has no new complaints. She reports her left arm still feels numb. - Constitutional Vitals: Temp Pulse Resp BP Pulse Ox 98.2 F 70 16 106/61 96 07/12/18 07:13 07/12/18 09:19 07/12/18 07:13 07/12/18 09:19 07/12/18 09:19 Exam: She is resting comfortably in bed and appears in no acute distress. Her affect is overall cheerful. She does not remember answers I gave her last visit to the same questions. Internal Medicine: Result - Labs CBC & Chem 7: 07/09/18 04:43 07/09/18 04:43 Consult Discharge Plan - Plan Referrals: Galindo Saucedo, LAUNDRY WORKER [Primary Care Provider] - 1 week
[2018-07-12] MEDS: *HR* Rivaroxaban 10 MG TABLET PO SCH (16:18)
[2018-07-12] MEDS: diazePAM 5 MG TABLET PO PRN (21:28)
[2018-07-13] MEDS: levETIRAcetam 250 MG TABLET PO SCH ×2 (05:16→17:43)
[2018-07-13] MEDS: *HR* OxyCODONE ER (12 HR) 10 MG TABLET PO SCH ×2 (05:16→17:38)
[2018-07-13 05:29] LABS: Basophils % 0.1 %; Eosinophils % 0.1 %; Hematocrit 33.4 % (35.3-44.9); Hemoglobin 11.1 g/dL (11.5-15.4); Immature Granulocytes % 0.8 % (0-4); Lymphocytes # 0.7 K/mcL (0.6-4.6); Lymphocytes % 8.8 %; Mean Corpuscular HGB Conc 33.2 g/dL (31.6-35.5); Mean Corpuscular Hemoglobin 29.4 pg (28.0-33.3); Mean Corpuscular Volume 88.6 fL (83.0-100.0); Mean Platelet Volume 9.6 fL (9.4-12.4); Monocytes # 0.5 K/mcL (0.0-1.3); Neutrophils # 6.3 K/mcL (1.6-8.9); Platelet Count 192 K/mcL (140-400); Red Blood Count 3.77 M/mcL (3.82-4.97); Red Cell Distribution Width 15.2 % (11.5-14.5); Segmented Neutrophils % 84.2 %
[2018-07-13 05:43] LABS: Bilirubin,Urine Negative (Negative); Blood,Urine Moderate (Negative); Clarity,Urine Clear (Clear); Color,Urine Yellow (Yellow); Glucose,Urine (UA) Normal (Normal); Ketones,Urine Negative (Negative); Leukocyte Esterase,Urine Trace (Negative); Nitrite,Urine Negative (Negative); PH,Urine 5.5 pH Units (5.0-8.0); Protein,Urine Negative (Neg-Trace); Urobilinogen,Urine Normal (Normal)
[2018-07-13 05:51] LABS: Bacteria,Urine Few per hpf (None-Few); RBC,Urine 15-30 per hpf (0-3); Squamous Epithelial Cell,Urine Moderate per lpf (None-Few)
[2018-07-13] MEDS: FLUoxetine 20 MG CAPSULE PO SCH (08:12)
[2018-07-13] MEDS: Cyanocobalamin (B-12) 1,000 MCG TABLET PO SCH (08:12)
[2018-07-13] MEDS: *HR* OxyCODONE Immed Rel 5 MG TABLET PO PRN ×2 (10:20→20:33)
[2018-07-13] MEDS: diazePAM 5 MG TABLET PO PRN (10:20)
[2018-07-13] MEDS: *HR* Rivaroxaban 10 MG TABLET PO SCH (17:42)
[2018-07-14] MEDS: levETIRAcetam 250 MG TABLET PO SCH ×2 (06:22→18:45)
[2018-07-14] MEDS: *HR* OxyCODONE ER (12 HR) 10 MG TABLET PO SCH ×2 (06:23→18:44)
[2018-07-14] MEDS: Cyanocobalamin (B-12) 1,000 MCG TABLET PO SCH (07:52)
[2018-07-14] MEDS: *HR* OxyCODONE Immed Rel 5 MG TABLET PO PRN ×2 (07:53→20:46)
[2018-07-14] MEDS: FLUoxetine 20 MG CAPSULE PO SCH (07:53)
[2018-07-14] MEDS: *HR* Rivaroxaban 10 MG TABLET PO SCH (18:44)
[2018-07-15] MEDS: levETIRAcetam 250 MG TABLET PO SCH ×2 (07:01→17:04)
[2018-07-15] MEDS: *HR* OxyCODONE ER (12 HR) 10 MG TABLET PO SCH ×2 (07:01→18:30)
[2018-07-15] MEDS: FLUoxetine 20 MG CAPSULE PO SCH (08:29)
[2018-07-15] MEDS: *HR* OxyCODONE Immed Rel 5 MG TABLET PO PRN ×3 (08:30→22:37)
[2018-07-15] MEDS: Cyanocobalamin (B-12) 1,000 MCG TABLET PO SCH (08:30)
[2018-07-15] MEDS: diazePAM 5 MG TABLET PO PRN ×2 (08:32→22:36)
--- NOTE | 2018-07-15 11:56 | Internal Med Progress Note ---
Date of Encounter: 07/15/18 Time of Encounter: 11:45 - Assessment and plan (1) Failure to thrive in adult Current Visit: No Status: Acute Assessment and plan: July 10. Continue PT and OT intervention. July 12. Continue therapy. Anticipate discharge home July 15. July 15. Anticipate discharge home tomorrow. (2) Glioblastoma multiforme Current Visit: No Status: Chronic Assessment and plan: July 10. As per oncologist July 15. Family is reportedly considering hospice. (3) Anemia Current Visit: No Status: Acute Assessment and plan: July 10. Anemia testing showed iron 62, transferrin saturation 22%, transferrin 199, ferritin 56, B12 1067, and folate 9.3. Continue to monitor. Qualifiers: Anemia type: B12 deficiency Vitamin B12 deficiency anemia type: unspecified B12 deficiency Qualified Code(s): D51.9 - Vitamin B12 deficiency anemia, unspecified (4) Pulmonary embolus Current Visit: Yes Status: Acute Assessment and plan: July 10. Continue Xarelto Qualifiers: Pulmonary embolism type: other Chronicity: unspecified Acute cor pulmonale presence: without acute cor pulmonale Qualified Code(s): I26.99 - Other pulmonary embolism without acute cor pulmonale - Subjective Interval history: July 10. She has no new complaints. July 12. She has no new complaints. She reports her left arm still feels numb. July 15. She has no new complaints. She had a follow-up visit at [facility] yesterday but does not recall many details about the visit. - Constitutional Vitals: Temp Pulse Resp BP Pulse Ox 97.9 F 74 14 112/66 97 07/15/18 07:03 07/15/18 08:28 07/15/18 07:03 07/15/18 07:03 07/15/18 07:03 Exam: She is resting comfortably in bed and appears in no acute distress. She is pleasant but cannot recall details about the [facility] visit yesterday. She does remember she is being discharged home tomorrow. Internal Medicine: Result - Labs CBC & Chem 7: 07/13/18 05:22 07/09/18 04:43 Consult Discharge Plan - Plan Referrals: Galindo Saucedo, MEAT CUTTER APPRENTICE [Primary Care Provider] - 1 week
[2018-07-15] MEDS: *HR* Rivaroxaban 10 MG TABLET PO SCH (17:05)
[2018-07-16] MEDS: *HR* OxyCODONE ER (12 HR) 10 MG TABLET PO SCH (07:03)
[2018-07-16] MEDS: levETIRAcetam 250 MG TABLET PO SCH (07:04)
[2018-07-16 07:21] VITALS: BP 133/65
[2018-07-16] MEDS: *HR* OxyCODONE Immed Rel 5 MG TABLET PO PRN ×2 (09:35→17:31)
[2018-07-16] MEDS: Cyanocobalamin (B-12) 1,000 MCG TABLET PO SCH (09:35)
[2018-07-16] MEDS: FLUoxetine 20 MG CAPSULE PO SCH (09:35)
[2018-07-16] MEDS: diazePAM 5 MG TABLET PO PRN (09:35)
[2018-07-16] MEDS: *HR* Rivaroxaban 10 MG TABLET PO SCH (17:30)
--- NOTE | 2018-07-16 17:47 | Discharge Summary ---
Date of Encounter: 07/16/18 Time of Encounter: 17:39 - Discharge Diagnosis (1) Failure to thrive in adult Priority: Primary Status: Acute (2) Glioblastoma multiforme Priority: Secondary Status: Chronic (3) Anemia Priority: Secondary Status: Acute Qualifiers: Anemia type: B12 deficiency Vitamin B12 deficiency anemia type: unspecified B12 deficiency Qualified Code(s): D51.9 - Vitamin B12 deficiency anemia, unspecified (4) Pulmonary embolus Priority: Secondary Status: Acute Qualifiers: Pulmonary embolism type: other Chronicity: unspecified Acute cor pulmonale presence: without acute cor pulmonale Qualified Code(s): I26.99 - Other pulmonary embolism without acute cor pulmonale Hospital course: Ms. Piña is a 62 year old female who was hospitalized at [facility] July 04- after presenting with dehydration. She was given IV fluids and had improvement. It was felt she would benefit from ongoing therapy so she was discharged to [facility] swing bed. Initial orders were written by the discharging physicians at [facility]. I saw her on July 08 and performed the swing bed history and physical. She had physical therapy and occupational therapy evaluations with ongoing intervention. She made minimal progress. Anemia testing showed iron 62, transferrin saturation 22%, transferrin 199, ferritin 56, B12 1067, and folate 9.3. Hemoglobin was stable at 11.1 on 2017. Xarelto was continued for history of recent DVT/PE. She had a follow-up visit at [facility] during her swing bed stay. It was reported to me by nursing staff that family was considering transitioning her to hospice which I feel is reasonable. On July 16 arrangements were complete for her to be discharged home. She will follow with her PCP SOFYA Saucedo CNP within 1 week. - Time Spent with Patient Total time spent providing and/or coordinating discharge services: - Discharge Medications Prescriptions: Rivaroxaban [Xarelto] 20 mg PO DAILY #30 tablet Home Medications: Omeprazole 40 mg PO DAILY 09/17/16 [History] Simvastatin [Zocor] 40 mg PO HS 09/17/16 [History] Acetaminophen [Tylenol] 650 mg PO Q4HR PRN 03/18/18 [History] Docusate [Colace] 100 mg PO BID 03/18/18 [History] Metoprolol [Lopressor] 12.5 mg PO BID 03/18/18 [History] Cyanocobalamin (B-12) [Vitamin B12] 1,000 mcg PO DAILY #30 tablet 04/01/18 [Rx] Dexamethasone [Decadron] 4 mg PO Q12HR #60 tablet 04/01/18 [Rx] LevETIRAcetam [Keppra] 500 mg PO Q12HR #60 tablet 04/01/18 [Rx] FLUoxetine HCl [Prozac] 20 mg PO DAILY 04/04/18 [History] OxyCODONE Immed Rel [Roxicodone 10 MG] 10 mg PO BID 07/04/18 [History] diazePAM [Valium] 5 mg PO BID PRN 07/04/18 [History] Dronabinol [Marinol] 2.5 mg PO BIDLS 15 Days #30 capsule 07/07/18 [Rx] Ondansetron ODT [Zofran ODT] 4 mg SL Q4HR PRN #30 tab.rapdis 07/07/18 [Rx] Rivaroxaban [Xarelto] 20 mg PO DAILY #30 tablet 07/16/18 [Rx] Allergies/Adverse Reactions: 3 Allergy/AdvReac Type Severity Reaction Status Date / Time Amoxicillin AdvReac Itching Verified 07/04/18 15:10 Date of admission: 07/07/18 16:28 Primary care physician: Galindo Saucedo CNP Consults: 07/07/18 16:07 Consult to Physical Therapy [CONS] Routine Comment: Evaluate, develop and implement POC Reason for Consult: Evaluate, develop and implement POC Does patient have active BEDREST order?: No Is patient medically & hemodynamically stable?: Yes 07/07/18 16:08 Consult to Occupational Therapy [CONS] Routine Comment: Evaluate, develop and implement POC Reason for Consult: Evaluate, develop and implement POC Does patient have active BEDREST order?: No Is patient medically & hemodynamically stable?: Yes - Constitutional Vitals: Temp Pulse Resp BP Pulse Ox 98.1 F 56 14 133/65 99 07/16/18 07:15 07/16/18 07:15 07/16/18 07:15 07/16/18 07:15 07/16/18 07:15 - Patient Status Disposition: Home Health Service - Discharge Instructions Follow Up With: Galindo Saucedo CNP [Primary Care Provider] - 1 week - Diet and Activity Activity: as per physical therapy Diet: advance to your usual diet
--- NOTE | 2018-07-16 18:43 | Physician Discharge Referral ---
Home Health/Hosp Referral Info Transfer to: Home Health Attending Provider: Dajuan Provider in Charge Post Discharge: PCP (SOFYA Saucedo CNP) - Diagnosis (1) Failure to thrive in adult Priority: Primary Status: Acute (2) Glioblastoma multiforme Priority: Secondary Status: Chronic (3) Anemia Priority: Secondary Status: Acute (4) Pulmonary embolus Priority: Secondary Status: Acute - Respiratory Orders Smoking Cessation: Smoking cessation has been advised. For more information, call the [place] Tobacco Quit Line at 6-894-TNAR-NOW. - Diet/Nutrition Diet/Nutrition Orders: Regular - Activity Activity Orders: Walker - Services Needed Following services are medically necessary services: Nursing, Home Health Aide, Physical Therapy, Occupational Therapy - Transfer Medications Prescriptions: Rivaroxaban [Xarelto] 20 mg PO DAILY #30 tablet Home Medications: Omeprazole 40 mg PO DAILY 09/17/16 [History] Simvastatin [Zocor] 40 mg PO HS 09/17/16 [History] Acetaminophen [Tylenol] 650 mg PO Q4HR PRN 03/18/18 [History] Docusate [Colace] 100 mg PO BID 03/18/18 [History] Metoprolol [Lopressor] 12.5 mg PO BID 03/18/18 [History] Cyanocobalamin (B-12) [Vitamin B12] 1,000 mcg PO DAILY #30 tablet 04/01/18 [Rx] Dexamethasone [Decadron] 4 mg PO Q12HR #60 tablet 04/01/18 [Rx] LevETIRAcetam [Keppra] 500 mg PO Q12HR #60 tablet 04/01/18 [Rx] FLUoxetine HCl [Prozac] 20 mg PO DAILY 04/04/18 [History] OxyCODONE Immed Rel [Roxicodone 10 MG] 10 mg PO BID 07/04/18 [History] diazePAM [Valium] 5 mg PO BID PRN 07/04/18 [History] Dronabinol [Marinol] 2.5 mg PO BIDLS 15 Days #30 capsule 07/07/18 [Rx] Ondansetron ODT [Zofran ODT] 4 mg SL Q4HR PRN #30 tab.rapdis 07/07/18 [Rx] Rivaroxaban [Xarelto] 20 mg PO DAILY #30 tablet 07/16/18 [Rx] Allergies/Adverse Reactions: 3 Allergy/AdvReac Type Severity Reaction Status Date / Time Amoxicillin AdvReac Itching Verified 07/04/18 15:10 Certification: Further, I certify that my clinical findings support that this patient is homebound (i.e. absences from home require considerable and taxing effort and are for medical reasons or gnosticist services or infrequently or short duration when for other reasons) because: Homebound Reason: Leaving home requires considerable and taxing effort due to condition (Instability of ambulation secondary to left side weakness from glioblastoma) Attestation: My signature below is to certify that this patient is under my care and that I, or nurse practitioner, or a physician's processing assistant working with me, has a face-to -face encounter with this patient.
== END 2018-07-16 18:45 | disposition home health service (06) | DRG 640 ==
LOC: INPPIK 16:28
PROVIDERS: ADMIT Internal Medicine; ATTEND Internal Medicine

== ENCOUNTER 2018-08-12 14:49 | Inpatient (IN) ==
[2018-08-12] MEDS ORDERED: Mag Hydrox/Al Hydrox/Simeth 30 ML UDC PO PRN (16:03)
[2018-08-12] MEDS ORDERED: Sennosides 8.6 MG TABLET PO PRN (16:05)
[2018-08-12] MEDS: *HR* OxyCODONE Immed Rel 5 MG TABLET PO PRN ×2 (16:52→21:18)
[2018-08-12] MEDS: levETIRAcetam 250 MG TABLET PO SCH (16:53)
[2018-08-12] MEDS: MORPHINE SUL Oral CONC 10 MG/0.5 ML ORAL.SYG PO PRN (18:27)
[2018-08-12] MEDS: Melatonin 3 MG TABLET PO SCH (21:18)
[2018-08-12] MEDS: *HR* LORazepam Oral Conc 2 MG/ML PO PRN (21:19)
[2018-08-13] MEDS: MORPHINE SUL Oral CONC 10 MG/0.5 ML ORAL.SYG PO PRN ×2 (02:09→08:47)
[2018-08-13] MEDS: *HR* OxyCODONE Immed Rel 5 MG TABLET PO PRN ×3 (06:28→21:07)
[2018-08-13] MEDS: levETIRAcetam 250 MG TABLET PO SCH ×2 (06:29→18:24)
[2018-08-13] MEDS: FLUoxetine 20 MG CAPSULE PO SCH (08:40)
[2018-08-13] MEDS: Loratadine 10 MG TABLET PO SCH (08:40)
[2018-08-13] MEDS: Thiamine (B-1) 100 MG TABLET PO SCH (08:42)
[2018-08-13] MEDS: Melatonin 3 MG TABLET PO SCH (21:07)
[2018-08-13] MEDS: *HR* LORazepam Oral Conc 2 MG/ML PO PRN (21:07)
[2018-08-14] MEDS: levETIRAcetam 250 MG TABLET PO SCH ×2 (06:24→18:03)
[2018-08-14] MEDS: Thiamine (B-1) 100 MG TABLET PO SCH (09:20)
[2018-08-14] MEDS: FLUoxetine 20 MG CAPSULE PO SCH (09:20)
[2018-08-14] MEDS: Loratadine 10 MG TABLET PO SCH (09:20)
[2018-08-14] MEDS: *HR* OxyCODONE Immed Rel 5 MG TABLET PO PRN ×2 (09:43→20:18)
[2018-08-14] MEDS: MORPHINE SUL Oral CONC 10 MG/0.5 ML ORAL.SYG PO PRN ×3 (11:04→15:45)
[2018-08-14] MEDS: Melatonin 3 MG TABLET PO SCH (20:18)
[2018-08-14] MEDS: *HR* LORazepam Oral Conc 2 MG/ML PO PRN (20:19)
[2018-08-15] MEDS: levETIRAcetam 250 MG TABLET PO SCH (06:34)
[2018-08-15 06:47] VITALS: BP 137/91
[2018-08-15] MEDS: FLUoxetine 20 MG CAPSULE PO SCH (10:07)
[2018-08-15] MEDS: Loratadine 10 MG TABLET PO SCH (10:08)
[2018-08-15] MEDS: Thiamine (B-1) 100 MG TABLET PO SCH (10:08)
[2018-08-15] MEDS: MORPHINE SUL Oral CONC 10 MG/0.5 ML ORAL.SYG PO PRN (10:22)
[2018-08-15] MEDS: *HR* LORazepam Oral Conc 2 MG/ML PO PRN (11:48)
== END 2018-08-15 15:59 | disposition hospice, home (50) | DRG 951 ==
LOC: INPPIK 14:52
PROVIDERS: ADMIT Internal Medicine; ATTEND Internal Medicine

== ENCOUNTER 2018-09-01 12:57 | Inpatient (IN) ==
[2018-09-01] MEDS ORDERED: Acetaminophen 325 MG TABLET PO PRN (14:47)
[2018-09-01] MEDS ORDERED: MORPHINE SUL Oral CONC 10 MG/0.5 ML ORAL.SYG PO PRN (14:47)
[2018-09-01] MEDS ORDERED: *HR* LORazepam Oral Conc 2 MG/ML PO PRN (14:47)
[2018-09-01] MEDS ORDERED: Mag Hydrox/Al Hydrox/Simeth 30 ML UDC PO PRN (14:47)
[2018-09-01] MEDS ORDERED: *HR* OxyCODONE Immed Rel 5 MG TABLET PO PRN (14:47)
[2018-09-01] MEDS: *HR* Methadone 10 MG TABLET PO SCH (15:28)
[2018-09-01] MEDS: levETIRAcetam 250 MG TABLET PO SCH (17:27)
[2018-09-01] MEDS: Melatonin 3 MG TABLET PO SCH (21:01)
[2018-09-02] MEDS: Ondansetron ODT 4 MG TAB.RAPDIS SL PRN (00:12)
[2018-09-02] MEDS: *HR* Methadone 10 MG TABLET PO SCH ×3 (00:12→16:28)
[2018-09-02] MEDS: levETIRAcetam 250 MG TABLET PO SCH ×2 (06:18→17:57)
[2018-09-02] MEDS: *HR* OxyCODONE Immed Rel 5 MG TABLET PO PRN ×2 (06:20→12:28)
[2018-09-02] MEDS: Sennosides 8.6 MG TABLET PO SCH (08:56)
[2018-09-02] MEDS: FLUoxetine 20 MG CAPSULE PO SCH (08:59)
[2018-09-02] MEDS: Loratadine 10 MG TABLET PO SCH (08:59)
[2018-09-02] MEDS: Thiamine (B-1) 100 MG TABLET PO SCH (09:04)
[2018-09-02] MEDS: MORPHINE SUL Oral CONC 10 MG/0.5 ML ORAL.SYG PO PRN (16:28)
[2018-09-02] MEDS: Melatonin 3 MG TABLET PO SCH (21:34)
[2018-09-03] MEDS: *HR* Methadone 10 MG TABLET PO SCH ×3 (00:12→17:45)
[2018-09-03] MEDS: Ondansetron ODT 4 MG TAB.RAPDIS SL PRN ×2 (05:03→13:53)
[2018-09-03] MEDS: levETIRAcetam 250 MG TABLET PO SCH ×2 (05:03→17:45)
[2018-09-03] MEDS: MORPHINE SUL Oral CONC 10 MG/0.5 ML ORAL.SYG PO PRN ×2 (05:04→22:52)
[2018-09-03] MEDS: *HR* OxyCODONE Immed Rel 5 MG TABLET PO PRN ×2 (13:53→20:35)
[2018-09-03] MEDS: Loratadine 10 MG TABLET PO SCH (14:01)
[2018-09-03] MEDS: Sennosides 8.6 MG TABLET PO SCH (14:01)
[2018-09-03] MEDS: FLUoxetine 20 MG CAPSULE PO SCH (14:01)
[2018-09-03] MEDS: Thiamine (B-1) 100 MG TABLET PO SCH (14:01)
[2018-09-03] MEDS: Melatonin 3 MG TABLET PO SCH (20:36)
[2018-09-04] MEDS: *HR* Methadone 10 MG TABLET PO SCH ×3 (00:30→17:38)
[2018-09-04] MEDS: levETIRAcetam 250 MG TABLET PO SCH ×2 (05:06→17:37)
[2018-09-04] MEDS: *HR* OxyCODONE Immed Rel 5 MG TABLET PO PRN ×2 (05:10→11:49)
[2018-09-04] MEDS: Ondansetron ODT 4 MG TAB.RAPDIS SL PRN (08:21)
[2018-09-04] MEDS: Loratadine 10 MG TABLET PO SCH (08:22)
[2018-09-04] MEDS: FLUoxetine 20 MG CAPSULE PO SCH (08:22)
[2018-09-04] MEDS: Sennosides 8.6 MG TABLET PO SCH (08:22)
[2018-09-04] MEDS: Thiamine (B-1) 100 MG TABLET PO SCH (08:23)
[2018-09-04] MEDS: Melatonin 3 MG TABLET PO SCH (20:53)
[2018-09-05] MEDS: *HR* Methadone 10 MG TABLET PO SCH ×3 (00:59→18:22)
[2018-09-05] MEDS: levETIRAcetam 250 MG TABLET PO SCH ×2 (06:26→18:32)
[2018-09-05] MEDS: *HR* OxyCODONE Immed Rel 5 MG TABLET PO PRN ×4 (06:28→21:14)
[2018-09-05] MEDS: FLUoxetine 20 MG CAPSULE PO SCH (08:35)
[2018-09-05] MEDS: Sennosides 8.6 MG TABLET PO SCH (08:35)
[2018-09-05] MEDS: Loratadine 10 MG TABLET PO SCH (08:35)
[2018-09-05] MEDS: Thiamine (B-1) 100 MG TABLET PO SCH (08:36)
[2018-09-05] MEDS: Melatonin 3 MG TABLET PO SCH (21:16)
[2018-09-06] MEDS: *HR* Methadone 10 MG TABLET PO SCH ×2 (00:59→09:06)
[2018-09-06] MEDS: levETIRAcetam 250 MG TABLET PO SCH (06:17)
[2018-09-06 06:21] VITALS: BP 116/73
[2018-09-06] MEDS: Loratadine 10 MG TABLET PO SCH (09:04)
[2018-09-06] MEDS: Sennosides 8.6 MG TABLET PO SCH (09:04)
[2018-09-06] MEDS: Thiamine (B-1) 100 MG TABLET PO SCH (09:05)
[2018-09-06] MEDS: FLUoxetine 20 MG CAPSULE PO SCH (09:06)
[2018-09-06] MEDS: Ondansetron ODT 4 MG TAB.RAPDIS SL PRN (11:42)
== END 2018-09-06 16:03 | disposition home health service (06) | DRG 951 ==
LOC: INPPIK 13:09
PROVIDERS: ADMIT Internal Medicine; ATTEND Internal Medicine